=== PATIENT | female | born 1955 | race Caucasian/White ===

== ENCOUNTER 2017-09-12 10:26 | Emergency (ER) | payer BC ==
--- NOTE | 2017-09-12 11:25 | EDPHY ---
H & P Stated Complaint: dx uti taking augmentin and macrobid/nausea abd pain/fever Time Seen by Provider: 09/12/17 10:48 HPI/ROS: CHIEF COMPLAINT: Abdominal pain HISTORY OF PRESENT ILLNESS: This is a 62-year-old female who presents with perceived fever and lower abdominal pain. She has had temperatures of 99-100, no higher than that. Six days ago she had some right-sided pain and hematuria. She saw a physician at [facility] in [place], [place] 5 days ago. At that time she was diagnosed with a possible urinary infection and was started on Augmentin. She was told that if she was not improving she should begin Macrobid along with the Augmentin. She started the Macrobid yesterday. A urine culture was done. She has continued with lower abdominal pain that she describes as crampy or like the onset of a menstrual period. In addition, she has had some low back pain bilaterally at the level of her waist and also in both flank regions, left more than right. She also notices some pressure in both shoulders. She denies vomiting, diarrhea, or dysuria. She is voiding more frequently than usual. She feels that she is completely emptying her bladder. REVIEW OF SYSTEMS: A ten point review of systems was performed and is negative with the exception of the items mentioned in the HPI. 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 She does not use tobacco products. She rarely drinks alcohol. She is visiting [place]. General Appearance: Alert. Vital signs reviewed. Eyes: Pupils equal and round, no conjunctival injection, no discharge. Anicteric. ENT, Mouth: Mucous membranes are moist, no oropharyngeal erythema or edema. Neck: No lymphadenopathy, supple. Respiratory: Lungs are clear to auscultation; no wheezes, rales, or rhonchi. Cardiovascular: Regular rate and rhythm; no murmur, rub, or gallop. Gastrointestinal: Abdomen is soft and mildly tender in the suprapubic region and the right upper quadrant, no guarding, no masses or organomegaly, bowel sounds normal. Skin: Warm and dry, no rashes on exposed skin, normal color. Back: Nontender to palpation over the thoracolumbar spine. No CVAT. Extremities: No lower extremity edema, no calf tenderness or swelling. Neurological: Alert and oriented. Moving all four extremities easily and equally. Psychiatric: Normal affect. - Personal History Current Tetanus Diphtheria and Acellular Pertussis (TDAP): Yes - Medical/Surgical History Hx Asthma: No Hx Chronic Respiratory Disease: No Hx Diabetes: No Hx Cardiac Disease: No Hx Renal Disease: No Hx Cirrhosis: No Hx Alcoholism: No Hx HIV/AIDS: No Hx Splenectomy or Spleen Trauma: No Other PMH: mild htn - Social History Smoking Status: Never smoked Constitutional: Initial Vital Signs Temperature (C) 37.1 C 09/12/17 10:31 Heart Rate 116 H 09/12/17 10:31 Respiratory Rate 18 09/12/17 10:31 Blood Pressure 177/84 H 09/12/17 10:31 O2 Sat (%) 95 09/12/17 10:31 O2 Delivery Mode Room Air Allergies/Adverse Reactions: sulfamethoxazole [From Novra] Allergy (Verified 09/12/17 10:29) trimethoprim [From Septra] Allergy (Verified 09/12/17 10:29) Home Medications: Medication Instructions Recorded Augmentin 875 MG TAB (*) 09/12/17 Hydrocodone/APAP 5/325 [[place] 1 - 2 tab PO Q4 PRN #10 tab 09/12/17 5/325 (RX)] Macrobid 09/12/17 Medical Decision Making ED Course/Re-evaluation: Lower abdominal and back pain in the setting of what was thought to be urinary tract infection. There is nothing to suggest pyelonephritis in her exam. UA reviewed today. It shows trace leukocyte esterase, 3-5 blood cells, 5-10 red blood cells. She has been taking Augmentin and Macrobid for presumed urinary tract infection. I am unable to obtain culture results from the urgent care that began her treatment. I am concerned about the possibility of ureterolithiasis with her history. CT scan of the abdomen and pelvis reveals a 4.1 mm stone in the distal left ureter with mild hydro ureter and hydronephrosis. I think this is likely the etiology of her discomfort. These results were relayed to the patient. She received 1 L IV normal saline and 15 mg IV Toradol. She was examined serially while in the department. At 1:30 p.m. She states that she is feeling better and feels well enough to return home. She will be discharged with a strainer, instructions to use anti-inflammatory medications, and a prescription for small quantity of [place] to use on an as needed basis. She will follow up when she returns to [place]. We reviewed the danger signs that should prompt her to return to the emergency department. She was made aware of the fact that she was hypertensive while in the emergency department. She has been told this in the past and has been trying to treat her blood pressure with lifestyle modifications. She will have this followed up by her primary care physician in [place]. Differential Diagnosis: Flank pain including but not limited to musculoskeletal causes, kidney stone, pyelonephritis, shingles, and intra-abdominal causes such as diverticulitis and appendicitis. - Data Points Laboratory Results: Laboratory Results 09/12/17 11:34 09/12/17 11:34 Medications Given: Discontinued Medications Sodium Chloride (Ns) 1,000 mls @ 0 mls/hr IV ONCE ONE PRN Reason: Wide Open Stop: 09/12/17 12:58 Last Admin: 09/12/17 12:59 Dose: 1,000 mls Ketorolac Tromethamine (Toradol) 15 mg IVP EDNOW ONE Stop: 09/12/17 12:44 Last Admin: 09/12/17 12:49 Dose: 15 mg Departure - Departure Disposition: Home, Routine, Self-Care Clinical Impression: Ureterolithiasis Condition: Good Instructions: Kidney Stones (ED) Additional Instructions: You have a kidney stone on the left and I think that this is causing your pain. For pain, start with ibuprofen (any brand is fine), 400 mg every six hours. If you have persistent or more severe pain, use the [place] as prescribed. Strain your urine. If you developed intractable severe pain, fever, any new or concerning symptoms you should return to the emergency department. I am providing you with the name of a local urologist, should you need additional treatment while you are in [place]. You should follow up with her primary care physician and request a referral to a urologist when you return to [place]. You can stop taking the Augmentin. Referrals: Celia Young MD [Medical Doctor] - As per Instructions Prescriptions: Hydrocodone/APAP 5/325 [[place] 5/325 (RX)] 1 - 2 tab PO Q4 PRN #10 tab PRN Reason: pain
[2017-09-12 11:41] LABS: PLATELET COUNT 124 10^3/uL (150-400)
[2017-09-12] MEDS ORDERED: KETOROLAC 15 MG/1 ML SDV IVP ONE (12:43)
[2017-09-12] MEDS ORDERED: NS 1,000 ML IV ONE (12:57)
[2017-09-12 13:38] VITALS: BP 144/71
== END 2017-09-12 14:02 | disposition home or self-care (01) ==
DX: N20.1 Calculus of ureter (principal); I10 Essential (primary) hypertension
CPT/HCPCS: 96374; J1885